=== PATIENT | male | born 1955 | race African-American/Black ===

== ENCOUNTER 2019-11-30 09:00 | Inpatient (IN) ==
[2019-11-30] MEDS ORDERED: DEXTROSE 50% 25 GM/50 ML VIAL IV PRN (13:10)
[2019-11-30] MEDS ORDERED: GLUCAGON 1 MG VIAL IM PRN (13:10)
[2019-11-30] MEDS ORDERED: MORPHINE 4 MG/1 ML VIAL IV PRN (13:26)
[2019-11-30] MEDS ORDERED: ZALEPLON 5 MG CAPSULE PO PRN (13:27)
[2019-11-30] MEDS ORDERED: CLORAZEPATE 3.75 MG TABLET PO PRN (13:27)
[2019-11-30] MEDS ORDERED: SODIUM CHLORIDE 0.9% 1,000 ML IV SCH (13:30)
[2019-11-30 14:40] LABS: Basophils % 0.4 % (0.0-0.8); Eosinophils # 0.1 10*3/uL (0.0-0.87); Eosinophils % 0.7 % (0.00-10.9); Hematocrit 42.2 VOL% (42.0-52.0); Hemoglobin 13.9 GM/DL (14.0-18.0); Immature Granulocytes % 0.1 %; Immature Granulocytes Absolute 0.01 #; Lymphocytes % 28.7 % (21.2-54.2); Mean Corpuscular HGB Conc 32.9 GM/DL (32-36); Mean Corpuscular Volume 91.9 FL (87-102); Mean Platelet Volume 9.9 FL (9.6-12.0); Monocytes % 9.5 % (1.7-12.7); Neutrophils % 60.6 % (38.7-73.9); Platelet Count 238 T/CUMM (130-400); Red Blood Count 4.59 MC/CUMM (3.8-5.5); Red Cell Distribution Width 12.6 % (9.3-17.3)
[2019-11-30] MEDS ORDERED: CHLORHEXIDINE 4% SOLN 118 ML BOTTLE TOP SCH (15:00)
[2019-11-30 15:03] LABS: Albumin 4.2 G/DL (3.4-5.0); Bilirubin,Total 0.7 MG/DL (0.2-1.0); Calcium 9.8 MG/DL (8.5-10.1); Osmolality,Calculated 273.8 MOS/KG (273-304); Total Protein 9.3 G/DL (6.4-8.3)
[2019-11-30] MEDS: CHLORHEXIDINE 4% SOLN 118 ML BOTTLE TOP SCH ×3 (16:02→21:25)
[2019-11-30 16:33] LABS: Pt O2 Delivery Device Room Air
[2019-11-30 16:50] LABS: ABG Base Excess 1.7 MMOL/L (-2.5-2.5); ABG HCO3 25.7 MMOL/L (20-26); ABG PCO2 38.5 MM HG (35-48); ABG PH 7.443 (7.35-7.45); ABG PO2 93.2 MM HG (80-95); ABG TCO2 26.9 MMOL/L (23-27)
[2019-11-30] MEDS: CHLORHEXIDINE 0.12% ORAL RINSE 60 ML BOTTLE SWISH/SPIT SCH (21:25)
[2019-12-01] MEDS ORDERED: VANCOMYCIN 1,000 MG VIAL ONE (04:21)
[2019-12-01] MEDS ORDERED: MIDAZOLAM 10 MG/2 ML VIAL ONE (06:00)
[2019-12-01] MEDS ORDERED: DIAZEPAM 5 MG TABLET PO ONE (06:00)
[2019-12-01] MEDS ORDERED: SUFentanil 250 MCG/5 ML AMP ONE ×2 (06:00→11:42)
[2019-12-01] MEDS ORDERED: FAMOTIDINE 20 MG TABLET PO ONE (06:00)
[2019-12-01] MEDS ORDERED: AMINOCAPROIC ACID 5,000 MG/20 ML VIAL ONE (06:01)
[2019-12-01 07:50] LABS: ABG Base Excess 1.5 MMOL/L (-2.5-2.5); ABG HCO3 25.7 MMOL/L (20-26); ABG Oxygen Saturation 99.8 % (95-100); ABG PH 7.451 (7.35-7.45); ABG TCO2 21.9 MMOL/L (23-27); Glucose Heart Surgery 127 MG/DL (74-106); Hemoglobin Heart Surgery 12.7 G/DL (14.0-18.0); PH Patient Temp Arterial 7.451; Patient Temperature 37 CELCIUS; Potassium Heart/CVR 3.8 MMOL/L (3.5-5.1); Sodium Heart/CVR 138 MMOL/L (135-145)
[2019-12-01] MEDS ORDERED: CEFUROXIME INJ 1,500 MG in SYRINGE 1 EACH IV ONE (08:00)
[2019-12-01 08:07] LABS: Apearance,Urine CLEAR (Clear); Bilirubin,Urine Negative (Negative); Blood, Urine Moderate mg/dL (Negative); Glucose,Urine (UA) Negative (Negative); Ketones,Urine Negative (Negative); Mucus,Urine Occasional /LPF (Occasional); Nitrite,Urine Negative (Negative); Protein,Urine Negative; RBC,Urine 48 /HPF (0-4); Urine Color Yellow (Yellow); Urine Specific Gravity 1.012 (1.001-1.035); Urine Urobilinogen < 2.0 EU/DL (0.2-1.0); WBC,Urine <1 /HPF (0-6)
[2019-12-01] MEDS ORDERED: PHENYLEPHRINE DRIP 20 MG/250 ML PREMIX IV ONE (09:54)
[2019-12-01] MEDS ORDERED: HEPARIN/NACL 0.9% 2 UNITS/ML 500 ML IV ONE (09:55)
[2019-12-01 10:13] LABS: PCO2 Patient Temp Venous 31.8 MM HG; PH Patient Temp Venous 7.498; PO2 Patient Temp Venous 38.2 MM HG; VBG Base Excess 1.9 MEQ/L (0-4); VBG HCO3 25.8 MEQ/L (24-28); VBG Oxygen Saturation 80.2 %; VBG PH 7.468; VBG PO2 43.9 MMHG (17-40)
[2019-12-01] MEDS: CHLORHEXIDINE 0.12% ORAL RINSE 60 ML BOTTLE SWISH/SPIT SCH ×2 (10:23→20:53)
[2019-12-01 10:41] LABS: Hematocrit Heart Surgery 27.8 PERCENT (42-52); Hemoglobin Heart Surgery 8.9 G/DL (14.0-18.0); PCO2 Patient Temp Venous 35.6 MM HG; PH Patient Temp Venous 7.467; PO2 Patient Temp Venous 36.8 MM HG; Potassium Heart/CVR 4.7 MMOL/L (3.5-5.1); VBG Base Excess 2.2 MEQ/L (0-4); VBG Oxygen Saturation 73.3 %; VBG PCO2 37.4 MMHG (41-51); VBG PH 7.452; VBG PO2 39.4 MMHG (17-40)
[2019-12-01 11:04] LABS: Hematocrit Heart Surgery 30.2 PERCENT (42-52); Hemoglobin Heart Surgery 9.8 G/DL (14.0-18.0); PH Patient Temp Venous 7.494; PO2 Patient Temp Venous 35.9 MM HG; Potassium Heart/CVR 4.2 MMOL/L (3.5-5.1); VBG Base Excess 2.4 MEQ/L (0-4); VBG HCO3 26.2 MEQ/L (24-28); VBG Oxygen Saturation 76.6 %; VBG PCO2 36.3 MMHG (41-51); VBG PH 7.464; VBG PO2 41.3 MMHG (17-40)
[2019-12-01 11:34] LABS: Hematocrit Heart Surgery 32.2 PERCENT (42-52); Hemoglobin Heart Surgery 10.4 G/DL (14.0-18.0); PCO2 Patient Temp Venous 30.1 MM HG; PH Patient Temp Venous 7.522; PO2 Patient Temp Venous 34.5 MM HG; Potassium Heart/CVR 4.1 MMOL/L (3.5-5.1); VBG Base Excess 2.4 MEQ/L (0-4); VBG HCO3 26.2 MEQ/L (24-28); VBG Oxygen Saturation 78.9 %; VBG PCO2 34.8 MMHG (41-51); VBG PH 7.476; VBG PO2 42.6 MMHG (17-40)
[2019-12-01 12:05] LABS: Hematocrit Heart Surgery 27.8 PERCENT (42-52); PCO2 Patient Temp Venous 31.3 MM HG; PH Patient Temp Venous 7.51; PO2 Patient Temp Venous 32.4 MM HG; Potassium Heart/CVR 4.4 MMOL/L (3.5-5.1); VBG Base Excess 2.4 MEQ/L (0-4); VBG HCO3 26.1 MEQ/L (24-28); VBG Oxygen Saturation 68.7 %; VBG PCO2 32.9 MMHG (41-51); VBG PH 7.495; VBG PO2 34.8 MMHG (17-40)
[2019-12-01] MEDS ORDERED: SODIUM BICARBONATE 50 MEQ/50 ML VIAL IV ONE ×2 (12:39→13:05)
[2019-12-01] MEDS ORDERED: DEXTROSE 5% KCL 20 MEQ 20 MEQ/1,000 ML BAG IV ONE (12:39)
[2019-12-01] MEDS ORDERED: ALBUMIN 25% 25 GM/100 ML VIAL IV ONE (12:39)
[2019-12-01] MEDS ORDERED: MAGNESIUM SULFATE 5 GM/10 ML VIAL IV ONE (12:39)
[2019-12-01] MEDS ORDERED: PROTAMINE SULFATE 250 MG/25 ML VIAL IV ONE (12:39)
[2019-12-01] MEDS ORDERED: LIDOCAINE 2% 5 ML VIAL ONE ×2 (12:39→14:11)
[2019-12-01] MEDS ORDERED: MANNITOL 100 GM/500 ML BAG IV ONE (12:39)
[2019-12-01] MEDS ORDERED: PROTAMINE SULFATE 50 MG/5 ML VIAL IV ONE ×2 (12:40→13:53)
[2019-12-01] MEDS ORDERED: methylPREDNISolone SOD SUC 1,000 MG/8 ML VIAL ONE (12:40)
[2019-12-01] MEDS ORDERED: FUROSEMIDE 20 MG/2 ML VIAL ONE (12:40)
[2019-12-01] MEDS ORDERED: HEPARIN 10,000 UNIT/10 ML VIAL ONE (12:40)
[2019-12-01 12:42] LABS: ABG Base Excess 0.8 MMOL/L (-2.5-2.5); ABG HCO3 25.1 MMOL/L (20-26); ABG Oxygen Saturation 99.7 % (95-100); ABG PCO2 41.9 MM HG (35-48); ABG PH 7.396 (7.35-7.45); ABG TCO2 23.4 MMOL/L (23-27); Glucose Heart Surgery 193 MG/DL (74-106); Hematocrit Heart Surgery 30.5 PERCENT (42-52); Hemoglobin Heart Surgery 9.9 G/DL (14.0-18.0); Ionized Calcium Arterial 1.28 MMOL/L (1.21-1.46); PCO2 Patient Temp Arterial 41.9 MMHG; PH Patient Temp Arterial 7.396; Patient Temperature 37 CELCIUS; Potassium Heart/CVR 3.7 MMOL/L (3.5-5.1); Sodium Heart/CVR 139 MMOL/L (135-145)
[2019-12-01] MEDS ORDERED: NITROPRUSSIDE 50 MG/2 ML VIAL ONE (13:04)
[2019-12-01] MEDS ORDERED: PHENYLEPHRINE DRIP 40 MG/250 ML PREMIX IV ONE (13:05)
[2019-12-01] MEDS ORDERED: CALCIUM CHLORIDE 1,000 MG/10 ML SYRINGE IV ONE (13:05)
[2019-12-01] MEDS ORDERED: POTASSIUM CHLORIDE RIDER 100 ML IV ONE (13:05)
[2019-12-01] MEDS ORDERED: MAGNESIUM SULF RIDER 4 GM in PREMIX 1 EACH IV PRN (13:16)
[2019-12-01] MEDS ORDERED: CALCIUM CHLORIDE 1,000 MG/10 ML SYRINGE IV PRN (13:16)
[2019-12-01] MEDS ORDERED: INSULIN REGULAR 100 UNIT/ML IV ONE (13:16)
[2019-12-01] MEDS ORDERED: MORPHINE 4 MG/1 ML VIAL IV PRN (13:16)
[2019-12-01] MEDS ORDERED: ONDANSETRON 4 MG/2 ML VIAL IV PRN (13:16)
[2019-12-01] MEDS ORDERED: NITROPRUSSIDE 100 MG in DEXTROSE 5% 250 ML IV PRN (13:16)
[2019-12-01] MEDS ORDERED: ACETAMINOPHEN 650 MG SUPP RECTAL PRN (13:16)
[2019-12-01] MEDS ORDERED: MORPHINE 10 MG/1 ML VIAL IV PRN (13:16)
[2019-12-01] MEDS ORDERED: DEXTROSE 50% 25 GM/50 ML VIAL IV PRN ×2 (13:16)
[2019-12-01] MEDS ORDERED: MIDAZOLAM 2 MG/2 ML VIAL IV PRN (13:16)
[2019-12-01] MEDS ORDERED: POTASSIUM CHLORIDE RIDER 10 MEQ in PREMIX 1 EACH IV PRN (13:16)
[2019-12-01] MEDS ORDERED: CHLORHEXIDINE 4% SOLN 118 ML BOTTLE TOP PRN (13:16)
[2019-12-01] MEDS ORDERED: PHENYLEPHRINE DRIP 40 MG/250 ML PREMIX IV PRN (13:16)
[2019-12-01] MEDS ORDERED: MAGNESIUM SULF RIDER 2 GM in PREMIX 1 EACH IV PRN (13:16)
[2019-12-01] MEDS ORDERED: INSULIN REGULAR 100 UNIT/ML IV PRN (13:16)
[2019-12-01] MEDS ORDERED: VECURONIUM 10 MG VIAL IV PRN ×2 (13:16)
[2019-12-01] MEDS ORDERED: INSULIN REGULAR DRIP 100 ML IV SCH (13:30)
[2019-12-01] MEDS ORDERED: SODIUM CHLORIDE 0.45% 1,000 ML IV SCH ×2 (13:30)
[2019-12-01] MEDS ORDERED: DOBUTamine 500 MG/250 ML PREMIX IV SCH (13:30)
[2019-12-01 14:02] LABS: ABG HCO3 24.4 MMOL/L (20-26); ABG Oxygen Saturation 99.7 % (95-100); ABG PCO2 39.3 MM HG (35-48); ABG PH 7.404 (7.35-7.45); ABG TCO2 22.3 MMOL/L (23-27); Glucose Heart Surgery 180 MG/DL (74-106); Hematocrit Heart Surgery 31.9 PERCENT (42-52); Hemoglobin Heart Surgery 10.3 G/DL (14.0-18.0); Potassium Heart/CVR 3.7 MMOL/L (3.5-5.1)
[2019-12-01 14:07] LABS: Basophils % 0.2 % (0.0-0.8); Eosinophils % 0.1 % (0.00-10.9); Hematocrit 30.4 VOL% (42.0-52.0); Hemoglobin 10.1 GM/DL (14.0-18.0); Immature Granulocytes % 0.8 %; Lymphocytes # 1.4 10*3/uL (1.4-4.0); Lymphocytes % 11.1 % (21.2-54.2); Mean Corpuscular HGB Conc 33.2 GM/DL (32-36); Mean Corpuscular Volume 92.4 FL (87-102); Mean Platelet Volume 10.3 FL (9.6-12.0); Monocytes % 3.9 % (1.7-12.7); Neutrophils % 83.9 % (38.7-73.9); Platelet Count 135 T/CUMM (130-400); Red Blood Count 3.29 MC/CUMM (3.8-5.5); Red Cell Distribution Width 12.6 % (9.3-17.3); White Blood Count 12.2 T/CUMM (4-12)
[2019-12-01] MEDS ORDERED: SODIUM CHLORIDE 0.9% 1,000 ML IV ONE (14:11)
[2019-12-01] MEDS ORDERED: VECURONIUM 10 MG VIAL IV ONE (14:11)
[2019-12-01] MEDS ORDERED: MINERAL OIL/PETROLATUM OPH OINT 3.5 GM TUBE ONE (14:11)
[2019-12-01] MEDS ORDERED: SEVOFLURANE 1 UNIT/15 MINUTE INH ONE (14:11)
[2019-12-01] MEDS ORDERED: SODIUM CHLORIDE 0.9% 200 ML IV ONE (14:11)
[2019-12-01] MEDS ORDERED: LACTATED RINGERS 1,000 ML IV ONE (14:11)
[2019-12-01] MEDS ORDERED: DOBUTamine 500 MG/250 ML PREMIX IV ONE (14:11)
[2019-12-01] MEDS ORDERED: ETOMIDATE 40 MG/20 ML VIAL IV ONE (14:11)
[2019-12-01] MEDS ORDERED: SODIUM CHLORIDE 0.9% 250 ML IV ONE (14:11)
[2019-12-01] MEDS ORDERED: CALCIUM CHLORIDE 1,000 MG/10 ML VIAL IV ONE (14:11)
[2019-12-01 14:24] LABS: INR 1.3; PT Patient Result 14.2 SECS (9.8-11.9); Partial Thromboplastin Time 25.1 SECS (23.9-33.8)
[2019-12-01 14:32] LABS: Albumin 3.7 G/DL (3.4-5.0); Bilirubin,Total 1.2 MG/DL (0.2-1.0); Calcium 8.9 MG/DL (8.5-10.1); Osmolality,Calculated 281.4 MOS/KG (273-304)
[2019-12-01 14:33] LABS: CKMB % 3.2 %
[2019-12-01 14:39] LABS: Troponin I 8.52 NG/ML (0.00-0.045)
[2019-12-01 14:58] LABS: ABG Base Excess -0.4 MMOL/L (-2.5-2.5); ABG HCO3 23.7 MMOL/L (20-26); ABG PCO2 37.7 MM HG (35-48); ABG PH 7.417 (7.35-7.45); ABG PO2 224.4 MM HG (80-95); ABG TCO2 24.9 MMOL/L (23-27); Glucose Heart Surgery 168 MG/DL (74-106); Potassium Heart/CVR 3.9 MMOL/L (3.5-5.1)
[2019-12-01 15:20] LABS: ABG Oxygen Saturation 24.9 % (95-100)
[2019-12-01] MEDS: ALBUMIN 5% 12.5 GM in PREMIX 1 EACH IV PRN ×4 (15:40→19:13)
[2019-12-01 16:31] LABS: ABG Base Excess -0.4 MMOL/L (-2.5-2.5); ABG HCO3 24.1 MMOL/L (20-26); ABG Oxygen Saturation 98.7 % (95-100); ABG PCO2 40.3 MM HG (35-48); ABG PH 7.391 (7.35-7.45); ABG TCO2 21.6 MMOL/L (23-27); Glucose Heart Surgery 182 MG/DL (74-106); Hematocrit Heart Surgery 38.1 PERCENT (42-52); Hemoglobin Heart Surgery 12.4 G/DL (14.0-18.0); Potassium Heart/CVR 3.9 MMOL/L (3.5-5.1)
[2019-12-01] MEDS ORDERED: FUROSEMIDE 40 MG/4 ML VIAL IV ONE (16:34)
[2019-12-01 16:50] LABS: VBG Base Excess 0.9 MEQ/L (0-4); VBG HCO3 24.6 MEQ/L (24-28); VBG Oxygen Saturation 55.8 %; VBG PCO2 47.7 MMHG (41-51); VBG PH 7.358
[2019-12-01] MEDS: MIDAZOLAM 10 MG/2 ML VIAL IV PRN ×2 (18:00→20:30)
[2019-12-01 18:12] LABS: ABG Base Excess -0.1 MMOL/L (-2.5-2.5); ABG HCO3 24.4 MMOL/L (20-26); ABG Oxygen Saturation 98.1 % (95-100); ABG PCO2 42.1 MM HG (35-48); ABG PH 7.383 (7.35-7.45); ABG TCO2 22.9 MMOL/L (23-27); Glucose Heart Surgery 183 MG/DL (74-106); Hematocrit Heart Surgery 30.7 PERCENT (42-52); Hemoglobin Heart Surgery 9.9 G/DL (14.0-18.0); Potassium Heart/CVR 3.8 MMOL/L (3.5-5.1)
[2019-12-01] MEDS: POTASSIUM CHLORIDE RIDER 20 MEQ in PREMIX 1 EACH IV PRN ×3 (18:21→23:40)
[2019-12-01 18:51] LABS: VBG Base Excess 1.2 MEQ/L (0-4); VBG HCO3 24.6 MEQ/L (24-28); VBG Oxygen Saturation 40.6 %; VBG PCO2 53.8 MMHG (41-51); VBG PH 7.326; VBG PO2 28.5 MMHG (17-40)
[2019-12-01] MEDS: LACTATED RINGERS 250 ML IV PRN ×4 (19:27→20:52)
[2019-12-01] MEDS ORDERED: NITROGLYCERIN DRIP 50 MG/250 ML BOTTLE IV ONE (19:51)
[2019-12-01] MEDS ORDERED: NITROGLYCERIN DRIP 50 MG/250 ML BOTTLE IV PRN (20:18)
[2019-12-01] MEDS: CEFUROXIME INJ 1,500 MG in SYRINGE 1 EACH IV SCH (20:58)
[2019-12-01 21:51] LABS: ABG Base Excess 0.7 MMOL/L (-2.5-2.5); ABG HCO3 25.1 MMOL/L (20-26); ABG Oxygen Saturation 99.2 % (95-100); ABG PCO2 39.5 MM HG (35-48); ABG PH 7.413 (7.35-7.45); ABG TCO2 23.3 MMOL/L (23-27); Glucose Heart Surgery 149 MG/DL (74-106); Hematocrit Heart Surgery 26.8 PERCENT (42-52); Hemoglobin Heart Surgery 8.6 G/DL (14.0-18.0); Potassium Heart/CVR 4.2 MMOL/L (3.5-5.1)
[2019-12-01 22:20] LABS: CKMB % 6.4 %
[2019-12-01 22:23] LABS: Troponin I 11.3 NG/ML (0.00-0.045)
[2019-12-01 23:03] LABS: ABG Base Excess 0.8 MMOL/L (-2.5-2.5); ABG HCO3 25.1 MMOL/L (20-26); ABG Oxygen Saturation 99.2 % (95-100); ABG PCO2 38.5 MM HG (35-48); ABG PH 7.422 (7.35-7.45); ABG TCO2 23.1 MMOL/L (23-27); Glucose Heart Surgery 137 MG/DL (74-106); Hematocrit Heart Surgery 27.4 PERCENT (42-52); Hemoglobin Heart Surgery 8.8 G/DL (14.0-18.0); Potassium Heart/CVR 4.4 MMOL/L (3.5-5.1)
[2019-12-02] MEDS: LACTATED RINGERS 250 ML IV PRN ×2 (01:00→01:20)
[2019-12-02] MEDS ORDERED: FUROSEMIDE 40 MG/4 ML VIAL IV ONE (02:48)
[2019-12-02 04:05] LABS: ABG Base Excess 0.7 MMOL/L (-2.5-2.5); ABG Oxygen Saturation 98.5 % (95-100); ABG PCO2 42.7 MM HG (35-48); ABG PH 7.389 (7.35-7.45); ABG TCO2 23.4 MMOL/L (23-27); Glucose Heart Surgery 150 MG/DL (74-106); Hematocrit Heart Surgery 31.8 PERCENT (42-52); Hemoglobin Heart Surgery 10.3 G/DL (14.0-18.0); Potassium Heart/CVR 4.2 MMOL/L (3.5-5.1)
[2019-12-02] MEDS: POTASSIUM CHLORIDE RIDER 20 MEQ in PREMIX 1 EACH IV PRN (04:12)
[2019-12-02 04:24] LABS: Basophils % 0.1 % (0.0-0.8); Hematocrit 30.7 VOL% (42.0-52.0); Immature Granulocytes % 0.3 %; Immature Granulocytes Absolute 0.04 #; Lymphocytes # 0.8 10*3/uL (1.4-4.0); Lymphocytes % 6.4 % (21.2-54.2); Mean Corpuscular HGB Conc 32.6 GM/DL (32-36); Mean Corpuscular Volume 92.5 FL (87-102); Monocytes % 5.4 % (1.7-12.7); Neutrophils % 87.8 % (38.7-73.9); Platelet Count 147 T/CUMM (130-400); Red Blood Count 3.32 MC/CUMM (3.8-5.5); Red Cell Distribution Width 13.4 % (9.3-17.3); White Blood Count 12.4 T/CUMM (4-12)
[2019-12-02 05:02] LABS: Albumin 4.4 G/DL (3.4-5.0); Bilirubin,Direct 0.2 MG/DL (0.0-0.20); Bilirubin,Total 0.9 MG/DL (0.2-1.0); Calcium 9.4 MG/DL (8.5-10.1); Osmolality,Calculated 279.4 MOS/KG (273-304); Total Protein 7.9 G/DL (6.4-8.3)
[2019-12-02 05:07] LABS: ABG Base Excess 0.5 MMOL/L (-2.5-2.5); ABG HCO3 24.7 MMOL/L (20-26); ABG Oxygen Saturation 98.3 % (95-100); ABG PCO2 38.4 MM HG (35-48); ABG PH 7.427 (7.35-7.45); ABG PO2 136.8 MM HG (80-95); ABG TCO2 25.9 MMOL/L (23-27); Glucose Heart Surgery 147 MG/DL (74-106); Hemoglobin Heart Surgery 10.5 G/DL (14.0-18.0); Potassium Heart/CVR 4.6 MMOL/L (3.5-5.1)
[2019-12-02 05:32] LABS: Troponin I 14.1 NG/ML (0.00-0.045)
[2019-12-02 05:50] LABS: ABG Base Excess 0.6 MMOL/L (-2.5-2.5); ABG HCO3 24.9 MMOL/L (20-26); ABG Oxygen Saturation 98.6 % (95-100); ABG PCO2 39.7 MM HG (35-48); ABG TCO2 22.8 MMOL/L (23-27); Glucose Heart Surgery 154 MG/DL (74-106); Hematocrit Heart Surgery 31.2 PERCENT (42-52); Hemoglobin Heart Surgery 10.1 G/DL (14.0-18.0); Potassium Heart/CVR 4.3 MMOL/L (3.5-5.1)
[2019-12-02] MEDS: amLODIPine 10 MG TABLET PO SCH (06:30)
[2019-12-02] MEDS: METOPROLOL SUCCINATE XL 50 MG TABLET PO SCH (06:30)
[2019-12-02] MEDS: LOSARTAN 50 MG TABLET PO SCH (06:30)
[2019-12-02 07:31] LABS: ABG Base Excess 0.9 MMOL/L (-2.5-2.5); ABG HCO3 25.3 MMOL/L (20-26); ABG PCO2 41.2 MM HG (35-48); ABG PH 7.404 (7.35-7.45); ABG TCO2 23.5 MMOL/L (23-27); Glucose Heart Surgery 145 MG/DL (74-106); Hematocrit Heart Surgery 30.2 PERCENT (42-52); Hemoglobin Heart Surgery 9.8 G/DL (14.0-18.0); Potassium Heart/CVR 4.2 MMOL/L (3.5-5.1)
[2019-12-02] MEDS ORDERED: INSULIN REGULAR 100 UNIT/ML SUBCUT SCH (08:00)
[2019-12-02] MEDS ORDERED: ALPRAZolam 0.5 MG TABLET PO PRN (08:14)
[2019-12-02 08:15] LABS: CKMB % 7.9 %
[2019-12-02 08:29] LABS: Troponin I 13.1 NG/ML (0.00-0.045)
[2019-12-02] MEDS: PANTOPRAZOLE 40 MG TABLET PO SCH (08:29)
[2019-12-02] MEDS: POTASSIUM CHLORIDE 10 MEQ TABLET PO SCH ×2 (08:29→21:14)
[2019-12-02] MEDS: CHLORHEXIDINE 0.12% ORAL RINSE 60 ML BOTTLE SWISH/SPIT SCH ×3 (08:30→21:14)
[2019-12-02] MEDS: CEFUROXIME INJ 1,500 MG in SYRINGE 1 EACH IV SCH ×2 (08:30→21:17)
[2019-12-02] MEDS ORDERED: GLUCAGON 1 MG VIAL IM PRN (09:55)
[2019-12-02] MEDS ORDERED: ALUMINUM/MAGNES/SIMETH MAX STR 30 ML UDCUP PO PRN (09:55)
[2019-12-02] MEDS ORDERED: ZALEPLON 5 MG CAPSULE PO PRN (09:55)
[2019-12-02] MEDS ORDERED: ONDANSETRON 4 MG/2 ML VIAL IV PRN (09:55)
[2019-12-02] MEDS ORDERED: SODIUM CHLOR 0.45% KCL 20 MEQ 20 MEQ/1,000 ML BAG IV SCH (09:55)
[2019-12-02] MEDS ORDERED: ACETAMINOPHEN 325 MG TABLET PO PRN (09:55)
[2019-12-02] MEDS ORDERED: MAGNESIUM SULF RIDER 4 GM in PREMIX 1 EACH IV PRN (09:55)
[2019-12-02] MEDS ORDERED: MAGNESIUM HYDROXIDE SUSP 30 ML UDCUP PO PRN (09:55)
[2019-12-02] MEDS ORDERED: KETOROLAC 30 MG/1 ML VIAL IV PRN (09:55)
[2019-12-02] MEDS ORDERED: MAGNESIUM SULF RIDER 2 GM in PREMIX 1 EACH IV PRN (09:55)
[2019-12-02] MEDS ORDERED: DEXTROSE 10% 250 ML BAG IV PRN (09:55)
[2019-12-02] MEDS: ASPIRIN EC 325 MG TABLET PO SCH (10:26)
[2019-12-02] MEDS: DOCUSATE SODIUM 100 MG CAPSULE PO SCH (10:26)
[2019-12-02] MEDS: FERROUS SULFATE 325 MG TABLET PO SCH (10:26)
[2019-12-02] MEDS: oxyCODONE/ACETAMINOPHEN 5-325 MG TABLET PO PRN ×2 (12:23→17:55)
[2019-12-02 14:36] LABS: CKMB % 6.7 %
[2019-12-02] MEDS: TAMSULOSIN 0.4 MG CAPSULE PO SCH (21:14)
[2019-12-02] MEDS: ATORVASTATIN 40 MG TABLET PO SCH (21:14)
[2019-12-03] MEDS: oxyCODONE/ACETAMINOPHEN 5-325 MG TABLET PO PRN ×4 (03:37→23:30)
[2019-12-03] MEDS ORDERED: FUROSEMIDE 40 MG/4 ML VIAL IV ONE (06:00)
[2019-12-03 07:13] LABS: Basophils % 0.1 % (0.0-0.8); Hematocrit 27.1 VOL% (42.0-52.0); Hemoglobin 8.8 GM/DL (14.0-18.0); Immature Granulocytes % 0.7 %; Immature Granulocytes Absolute 0.11 #; Lymphocytes # 1.8 10*3/uL (1.4-4.0); Lymphocytes % 11.2 % (21.2-54.2); Mean Corpuscular HGB Conc 32.5 GM/DL (32-36); Mean Corpuscular Volume 94.4 FL (87-102); Mean Platelet Volume 11.4 FL (9.6-12.0); Monocytes % 9.7 % (1.7-12.7); Neutrophils % 78.3 % (38.7-73.9); Red Blood Count 2.87 MC/CUMM (3.8-5.5); Red Cell Distribution Width 13.2 % (9.3-17.3); White Blood Count 15.8 T/CUMM (4-12)
[2019-12-03 07:14] LABS: Platelet Count 126 T/CUMM (130-400)
[2019-12-03 07:18] LABS: Albumin 3.8 G/DL (3.4-5.0); Bilirubin,Direct 0.23 MG/DL (0.0-0.20); Bilirubin,Total 1.4 MG/DL (0.2-1.0); Calcium 9.2 MG/DL (8.5-10.1); Osmolality,Calculated 276.7 MOS/KG (273-304); Total Protein 7.2 G/DL (6.4-8.3)
[2019-12-03 07:38] LABS: Albumin 3.9 G/DL (3.4-5.0); Bilirubin,Direct 0.22 MG/DL (0.0-0.20); Bilirubin,Total 1.2 MG/DL (0.2-1.0); CKMB % 3.2 %; Total Protein 7.1 G/DL (6.4-8.3)
[2019-12-03] MEDS: PANTOPRAZOLE 40 MG TABLET PO SCH (09:11)
[2019-12-03] MEDS: DOCUSATE SODIUM 100 MG CAPSULE PO SCH (09:11)
[2019-12-03] MEDS: POTASSIUM CHLORIDE 10 MEQ TABLET PO SCH ×2 (09:11→21:31)
[2019-12-03] MEDS: amLODIPine 10 MG TABLET PO SCH (09:11)
[2019-12-03] MEDS: ASPIRIN EC 325 MG TABLET PO SCH (09:11)
[2019-12-03] MEDS: FERROUS SULFATE 325 MG TABLET PO SCH (09:12)
[2019-12-03] MEDS: LOSARTAN 50 MG TABLET PO SCH (09:12)
[2019-12-03] MEDS: METOPROLOL SUCCINATE XL 50 MG TABLET PO SCH (09:12)
[2019-12-03] MEDS: CHLORHEXIDINE 0.12% ORAL RINSE 60 ML BOTTLE SWISH/SPIT SCH ×2 (09:41→21:31)
[2019-12-03] MEDS ORDERED: GLUCAGON 1 MG VIAL IM PRN (09:58)
[2019-12-03] MEDS ORDERED: DEXTROSE 50% 25 GM/50 ML VIAL IV PRN (09:58)
[2019-12-03] MEDS: INSULIN REGULAR 100 UNIT/ML SUBCUT SCH ×3 (15:21→22:28)
[2019-12-03] MEDS: TAMSULOSIN 0.4 MG CAPSULE PO SCH (18:28)
[2019-12-03] MEDS: ATORVASTATIN 40 MG TABLET PO SCH (21:31)
[2019-12-04 04:47] LABS: Albumin 3.6 G/DL (3.4-5.0); Bilirubin,Direct 0.28 MG/DL (0.0-0.20); Bilirubin,Total 1.1 MG/DL (0.2-1.0); Osmolality,Calculated 279.7 MOS/KG (273-304); Total Protein 7.2 G/DL (6.4-8.3)
[2019-12-04 05:03] LABS: Basophils % 0.1 % (0.0-0.8); Eosinophils % 0.1 % (0.00-10.9); Hematocrit 24.9 VOL% (42.0-52.0); Hemoglobin 8.3 GM/DL (14.0-18.0); Immature Granulocytes % 0.7 %; Immature Granulocytes Absolute 0.09 #; Lymphocytes # 2.3 10*3/uL (1.4-4.0); Lymphocytes % 16.6 % (21.2-54.2); Mean Corpuscular HGB Conc 33.3 GM/DL (32-36); Mean Corpuscular Volume 92.2 FL (87-102); Mean Platelet Volume 11.2 FL (9.6-12.0); Monocytes % 12.2 % (1.7-12.7); Neutrophils % 70.3 % (38.7-73.9); Platelet Count 111 T/CUMM (130-400); White Blood Count 13.6 T/CUMM (4-12)
[2019-12-04 05:21] LABS: Hypochromasia 1+; Microcytosis Slight; Platelet Estimate Decreased; Polychromasia Slight
[2019-12-04] MEDS: oxyCODONE/ACETAMINOPHEN 5-325 MG TABLET PO PRN ×2 (05:33→11:11)
[2019-12-04 07:23] LABS: Albumin 3.5 G/DL (3.4-5.0); Bilirubin,Direct 0.27 MG/DL (0.0-0.20); Bilirubin,Indirect 0.6 MG/DL (0.0-1.0); Bilirubin,Total 0.9 MG/DL (0.2-1.0); CKMB % 0.9 %; Total Protein 7.2 G/DL (6.4-8.3)
[2019-12-04 07:25] LABS: Troponin I 12.5 NG/ML (0.00-0.045)
[2019-12-04] MEDS: FERROUS SULFATE 325 MG TABLET PO SCH (09:05)
[2019-12-04] MEDS: POTASSIUM CHLORIDE 20 MEQ TABLET PO PRN (09:05)
[2019-12-04] MEDS: DOCUSATE SODIUM 100 MG CAPSULE PO SCH (09:05)
[2019-12-04] MEDS: PANTOPRAZOLE 40 MG TABLET PO SCH (09:05)
[2019-12-04] MEDS: LOSARTAN 50 MG TABLET PO SCH (09:05)
[2019-12-04] MEDS: POTASSIUM CHLORIDE 10 MEQ TABLET PO SCH ×2 (09:05→21:25)
[2019-12-04] MEDS: ASPIRIN EC 325 MG TABLET PO SCH (09:05)
[2019-12-04] MEDS: METOPROLOL SUCCINATE XL 50 MG TABLET PO SCH (09:05)
[2019-12-04] MEDS: INSULIN REGULAR 100 UNIT/ML SUBCUT SCH ×4 (09:06→21:26)
[2019-12-04] MEDS: amLODIPine 10 MG TABLET PO SCH (09:06)
[2019-12-04] MEDS: CHLORHEXIDINE 0.12% ORAL RINSE 60 ML BOTTLE SWISH/SPIT SCH ×2 (09:06→21:26)
[2019-12-04] MEDS ORDERED: SODIUM CHLORIDE 0.9% 1,000 ML IV PRN (09:29)
[2019-12-04] MEDS ORDERED: FUROSEMIDE 40 MG/4 ML VIAL IV ONE (12:00)
[2019-12-04] MEDS: TAMSULOSIN 0.4 MG CAPSULE PO SCH (18:19)
[2019-12-04] MEDS: ATORVASTATIN 40 MG TABLET PO SCH (21:25)
[2019-12-04 23:07] LABS: Hematocrit 27.9 VOL% (42.0-52.0); Hemoglobin 9.1 GM/DL (14.0-18.0)
[2019-12-05] MEDS: oxyCODONE/ACETAMINOPHEN 5-325 MG TABLET PO PRN ×2 (02:52→14:45)
[2019-12-05] MEDS ORDERED: FUROSEMIDE 40 MG/4 ML VIAL IV ONE (05:25)
[2019-12-05 06:00] LABS: Basophils % 0.2 % (0.0-0.8); Eosinophils # 0.1 10*3/uL (0.0-0.87); Eosinophils % 0.7 % (0.00-10.9); Hematocrit 31.1 VOL% (42.0-52.0); Hemoglobin 10.1 GM/DL (14.0-18.0); Immature Granulocytes % 0.5 %; Immature Granulocytes Absolute 0.07 #; Lymphocytes # 2.1 10*3/uL (1.4-4.0); Lymphocytes % 15.9 % (21.2-54.2); Mean Corpuscular HGB Conc 32.5 GM/DL (32-36); Mean Corpuscular Volume 93.7 FL (87-102); Monocytes % 10.2 % (1.7-12.7); Neutrophils % 72.5 % (38.7-73.9); Platelet Count 144 T/CUMM (130-400); Red Blood Count 3.32 MC/CUMM (3.8-5.5); Red Cell Distribution Width 13.2 % (9.3-17.3); White Blood Count 12.9 T/CUMM (4-12)
[2019-12-05 06:13] LABS: Calcium 9.2 MG/DL (8.5-10.1); Osmolality,Calculated 275.8 MOS/KG (273-304)
[2019-12-05 06:17] LABS: Albumin 3.7 G/DL (3.4-5.0); Bilirubin,Total 1.7 MG/DL (0.2-1.0); Calcium 9.2 MG/DL (8.5-10.1); Total Protein 7.3 G/DL (6.4-8.3)
[2019-12-05] MEDS: POTASSIUM CHLORIDE 20 MEQ TABLET PO PRN (09:58)
[2019-12-05] MEDS: amLODIPine 10 MG TABLET PO SCH (09:58)
[2019-12-05] MEDS: PANTOPRAZOLE 40 MG TABLET PO SCH (09:58)
[2019-12-05] MEDS: POTASSIUM CHLORIDE 10 MEQ TABLET PO SCH ×2 (09:58→20:58)
[2019-12-05] MEDS: LOSARTAN 50 MG TABLET PO SCH (09:58)
[2019-12-05] MEDS: FERROUS SULFATE 325 MG TABLET PO SCH (09:58)
[2019-12-05] MEDS: METOPROLOL SUCCINATE XL 50 MG TABLET PO SCH (09:59)
[2019-12-05] MEDS: DOCUSATE SODIUM 100 MG CAPSULE PO SCH (09:59)
[2019-12-05] MEDS: CHLORHEXIDINE 0.12% ORAL RINSE 60 ML BOTTLE SWISH/SPIT SCH ×2 (09:59→21:00)
[2019-12-05] MEDS: ASPIRIN EC 325 MG TABLET PO SCH (09:59)
[2019-12-05] MEDS: INSULIN REGULAR 100 UNIT/ML SUBCUT SCH ×4 (10:54→22:30)
[2019-12-05] MEDS: ATORVASTATIN 40 MG TABLET PO SCH (20:58)
[2019-12-05] MEDS: TAMSULOSIN 0.4 MG CAPSULE PO SCH (20:59)
[2019-12-06 07:49] LABS: Alanine Aminotransferase 30 U/L (16-61); Albumin 3.3 G/DL (3.4-5.0); Alkaline Phosphatase 53 U/L (45-117); Aspartate Amino Transferase 70 U/L (0-37); Bilirubin,Indirect 0.8 MG/DL (0.0-1.0); Blood Urea Nitrogen 20 MG/DL (7-18); Calcium 9.1 MG/DL (8.5-10.1); Estimated Glom Filtration Rate 134 ML/MIN; Glucose 103 MG/DL (74-106); Osmolality,Calculated 272.1 MOS/KG (273-304)
[2019-12-06 07:52] LABS: Basophils % 0.4 % (0.0-0.8); Eosinophils # 0.2 10*3/uL (0.0-0.87); Eosinophils % 2.2 % (0.00-10.9); Hematocrit 31.6 VOL% (42.0-52.0); Hemoglobin 10.6 GM/DL (14.0-18.0); Immature Granulocytes % 0.7 %; Immature Granulocytes Absolute 0.07 #; Lymphocytes # 2.1 10*3/uL (1.4-4.0); Lymphocytes % 19.9 % (21.2-54.2); Mean Corpuscular HGB Conc 33.5 GM/DL (32-36); Mean Corpuscular Volume 92.9 FL (87-102); Mean Platelet Volume 10.6 FL (9.6-12.0); Monocytes % 11.4 % (1.7-12.7); Neutrophils % 65.4 % (38.7-73.9); Platelet Count 180 T/CUMM (130-400); Red Cell Distribution Width 13.3 % (9.3-17.3); White Blood Count 10.5 T/CUMM (4-12)
[2019-12-06] MEDS ORDERED: LACTULOSE 20 GM/30 ML UDCUP PO PRN (09:09)
[2019-12-06] MEDS: ASPIRIN EC 325 MG TABLET PO SCH (09:13)
[2019-12-06] MEDS: POLYETHYLENE GLYCOL POWDER 17 GM PACK PO SCH (09:13)
[2019-12-06] MEDS: POTASSIUM CHLORIDE 10 MEQ TABLET PO SCH ×2 (09:13→21:17)
[2019-12-06] MEDS: oxyCODONE/ACETAMINOPHEN 5-325 MG TABLET PO PRN ×2 (09:14→18:14)
[2019-12-06] MEDS: LOSARTAN 50 MG TABLET PO SCH (09:15)
[2019-12-06] MEDS: METOPROLOL SUCCINATE XL 50 MG TABLET PO SCH (09:15)
[2019-12-06] MEDS: PANTOPRAZOLE 40 MG TABLET PO SCH (09:15)
[2019-12-06] MEDS: DOCUSATE SODIUM 100 MG CAPSULE PO SCH (09:16)
[2019-12-06] MEDS: amLODIPine 10 MG TABLET PO SCH (09:16)
[2019-12-06] MEDS: CHLORHEXIDINE 0.12% ORAL RINSE 60 ML BOTTLE SWISH/SPIT SCH ×2 (09:16→21:18)
[2019-12-06] MEDS: INSULIN REGULAR 100 UNIT/ML SUBCUT SCH ×4 (09:17→21:17)
[2019-12-06] MEDS: FERROUS SULFATE 325 MG TABLET PO SCH (10:33)
[2019-12-06] MEDS: TAMSULOSIN 0.4 MG CAPSULE PO SCH (18:11)
[2019-12-06] MEDS: ATORVASTATIN 40 MG TABLET PO SCH (21:17)
[2019-12-07] MEDS: oxyCODONE/ACETAMINOPHEN 5-325 MG TABLET PO PRN ×2 (05:00→09:28)
[2019-12-07 06:34] LABS: Basophils # 0.1 10*3/uL (0.0-0.2); Basophils % 0.5 % (0.0-0.8); Eosinophils # 0.3 10*3/uL (0.0-0.87); Hematocrit 32.2 VOL% (42.0-52.0); Hemoglobin 10.7 GM/DL (14.0-18.0); Immature Granulocytes % 0.8 %; Immature Granulocytes Absolute 0.08 #; Lymphocytes % 21.1 % (21.2-54.2); Mean Corpuscular HGB Conc 33.2 GM/DL (32-36); Mean Corpuscular Volume 92.8 FL (87-102); Mean Platelet Volume 10.6 FL (9.6-12.0); Monocytes % 12.5 % (1.7-12.7); Neutrophils % 62.1 % (38.7-73.9); Platelet Count 201 T/CUMM (130-400); Red Blood Count 3.47 MC/CUMM (3.8-5.5); White Blood Count 9.7 T/CUMM (4-12)
[2019-12-07 07:01] LABS: Alanine Aminotransferase 34 U/L (16-61); Albumin 3.4 G/DL (3.4-5.0); Alkaline Phosphatase 61 U/L (45-117); Aspartate Amino Transferase 57 U/L (0-37); Bilirubin,Indirect 1.1 MG/DL (0.0-1.0); Blood Urea Nitrogen 18 MG/DL (7-18); Calcium 9.4 MG/DL (8.5-10.1); Estimated Glom Filtration Rate 132 ML/MIN; Glucose 93 MG/DL (74-106); Osmolality,Calculated 269.2 MOS/KG (273-304)
[2019-12-07] MEDS: INSULIN REGULAR 100 UNIT/ML SUBCUT SCH ×2 (08:13→12:11)
[2019-12-07] MEDS: PANTOPRAZOLE 40 MG TABLET PO SCH (09:25)
[2019-12-07] MEDS: POTASSIUM CHLORIDE 10 MEQ TABLET PO SCH (09:25)
[2019-12-07] MEDS: FERROUS SULFATE 325 MG TABLET PO SCH (09:25)
[2019-12-07] MEDS: METOPROLOL SUCCINATE XL 50 MG TABLET PO SCH (09:25)
[2019-12-07] MEDS: ASPIRIN EC 325 MG TABLET PO SCH (09:25)
[2019-12-07] MEDS: LOSARTAN 50 MG TABLET PO SCH (09:25)
[2019-12-07] MEDS: POLYETHYLENE GLYCOL POWDER 17 GM PACK PO SCH (09:25)
[2019-12-07] MEDS: DOCUSATE SODIUM 100 MG CAPSULE PO SCH (09:25)
[2019-12-07] MEDS: amLODIPine 10 MG TABLET PO SCH (09:25)
[2019-12-07] MEDS: CHLORHEXIDINE 0.12% ORAL RINSE 60 ML BOTTLE SWISH/SPIT SCH (09:26)
[2019-12-07 12:15] VITALS: BP 121/69
== END 2019-12-07 13:54 | disposition home health service (06) | DRG 220 ==
LOC: N.4E 13:25 → N.CVR 12-01 13:20 → N.TELES 12-02 11:42